=== PATIENT | male | born 1955 | race Caucasian/White ===

== ENCOUNTER 2016-07-20 07:22 | Day surgery (SDC) | payer OTHER ==
[~2016-07-20] VITALS: Ht 162.6 cm; Wt 60.7 kg
[~2016-07-20 07:22] MED LIST: AMLODIPINE BESYL5 MG PO; ASPIR-TRIN325 MG PO; ATORVASTATIN CA80 MG PO; LISINOPRIL5 MG PO; METOPROLOL TART25 MG PO; NOHOMEMEDS; PLAVIX75 MG PO; TAMSULOSIN HCL0.4 MG PO
[2016-07-20 16:05] VITALS: BP 132/78
[2016-07-20 19:52] VITALS: BP 145/84
[2016-07-20 23:25] VITALS: BP 132/89
[2016-07-21 04:31] VITALS: BP 133/85
[2016-07-21 05:56] LABS: BASOPHIL COUNT 0.1 K/uL (0-0.1); EOSINOPHIL (%) 2.6 % (0-5); EOSINOPHIL COUNT 0.3 K/uL (0-0.3); IMMATURE GRANULOCYTE (%) 1.7 % (0.0-0.7); IMMATURE GRANULOCYTE COUNT 0.2 K/uL; LYMPHOCYTE COUNT 3.8 K/uL (1.0-2.8); MCH 31.3 PG (29.0-34.0); MCHC 33.6 G/DL (30.0-36.0); MCV 93.3 FL (86-99); MEAN PLAT.VOLUME 10.1 uM^3 (9.0-12.4); MONOCYTE (%) 11.2 % (3-12); MONOCYTE COUNT 1.2 K/uL (0-0.8); NEUTROPHIL (%) 47.4 % (45-76); PLATELET COUNT 213 K/uL (156-360); RBC DIS.WIDTH-SD 47.6 % (39-53); WHITE BLOOD COUNT 10.5 K/uL (4.1-10.2)
[2016-07-21 06:49] LABS: ANION GAP 7 MEQ/L (2-14); CHLORIDE 107 MEQ/L (99-109); GFR ESTIMATE (CALCULATED) > 59 mL/min/; HDL CHOLESTEROL 45 MG/DL (Desirable>=40); LDL CHOLESTEROL 56 mg/dL (Desirable<100); NON-HDL CHOLESTEROL 66 mg/dL (Desirable<160); POTASSIUM 4.1 MEQ/L (3.7-5.4); SAMPLE HEMOLYSIS CHECK 0; SAMPLE ICTERIC CHECK 0; SAMPLE LIPEMIA CHECK 0; SODIUM 140 MEQ/L (136-147); TOTAL CHOLESTEROL 111 mg/dL (Desirable<200); TRIGLYCERIDES 48 MG/DL (Normal: <150); UREA NITROGEN (BUN) 12 mg/dL (9-23)
[2016-07-21 06:51] LABS: GLUCOSE 80 mg/dL (70-99)
[2016-07-21 07:59] VITALS: BP 154/73
[2016-07-21 08:11] LABS: Estimated Average Glucose 143 mg/dL (70-123); HEMOGLOBIN A1c (GLYCOHEMOGLOB) 6.6 % HGB (Below 5.7)
[2016-07-21] MEDS ORDERED: ATORVASTATIN CA40 MG PO (11:45)
[2016-07-21] MEDS ORDERED: LISINOPRIL10 MG PO (11:46)
[2016-07-21] MEDS ORDERED: NITROSTAT0.4 MG SL (11:46)
[2016-07-21] MEDS ORDERED: EFFIENT10 MG PO (11:47)
== END 2016-07-21 12:48 | disposition home or self-care (01) ==
LOC: CATH 07:22 → 2SOUTH 12:20 → 4EAST 12:20
PROVIDERS: Internal Medicine Interventional Cardiology
DX: I25.10 Atherosclerotic heart disease of native coronary artery without angina pectoris (principal); I34.0 Nonrheumatic mitral (valve) insufficiency; I25.5 Ischemic cardiomyopathy; I11.9 Hypertensive heart disease without heart failure; E78.5 Hyperlipidemia, unspecified; J44.9 Chronic obstructive pulmonary disease, unspecified; I25.2 Old myocardial infarction; Z87.891 Personal history of nicotine dependence; Z79.02 Long term (current) use of antithrombotics/antiplatelets; Z82.49 Family history of ischemic heart disease and other diseases of the circulatory system
CPT/HCPCS: 93458; C9600; 80048; 80061; 83036; 85025; 85347; 93005; C1725; C1769; C1874; C1887; G0378; J0153; J1644; J2250; J3010; J7030; J7050

== ENCOUNTER 2016-08-12 00:08 | Inpatient (IN) | payer OTHER ==
[~2016-08-12] VITALS: Ht 162.6 cm; Wt 62.0 kg
[~2016-08-12 00:08] MED LIST changes: +ATORVASTATIN CA40 MG PO; +EFFIENT10 MG PO; +LISINOPRIL10 MG PO; +NITROSTAT0.4 MG SL
[2016-08-12 01:33] LABS: EOSINOPHIL (%) 0.2 % (0-5); HEMATOCRIT 42.1 % (38.0-50.0); IMMATURE GRANULOCYTE (%) 1.2 % (0.0-0.7); IMMATURE GRANULOCYTE COUNT 0.1 K/uL; INSTRUMENT ABS NEUTROPHIL CT 4.4 K/uL; LYMPHOCYTE COUNT 3.7 K/uL (1.0-2.8); MCH 30.8 PG (29.0-34.0); MCHC 33.3 G/DL (30.0-36.0); MCV 92.5 FL (86-99); MONOCYTE (%) 13.8 % (3-12); MONOCYTE COUNT 1.3 K/uL (0-0.8); NEUTROPHIL (%) 45.8 % (45-76); NEUTROPHIL COUNT 4.4 K/uL (1.8-6.4); PLATELET COUNT 216 K/uL (156-360); RBC DIS.WIDTH-CV 14.3 % (11.8-14.6); RBC DIS.WIDTH-SD 48.5 % (39-53); RED BLOOD COUNT 4.55 M/uL (4.00-5.50); WHITE BLOOD COUNT 9.7 K/uL (4.1-10.2)
[2016-08-12 01:44] LABS: CHLORIDE 104 mEq/L (99-109); MAGNESIUM 1.7 mg/dL (1.3-2.7); POTASSIUM 4.4 mEq/L (3.7-5.4); SODIUM 141 mEq/L (136-147)
[2016-08-12 01:45] LABS: D-DIMER ELISA 0.78 mg/L FEU (< 0.57); GLUCOSE 115 mg/dL (70-99); INTER. NORMALIZED RATIO 1.1; PROTHROMBIN TIME 10.7 (9.2-11.2); PTT 26.2 (25-32)
[2016-08-12 01:47] LABS: ANION GAP 10 MEQ/L (2-14)
[2016-08-12 01:49] LABS: GFR ESTIMATE (CALCULATED) > 59 mL/min/
[2016-08-12 01:50] LABS: UREA NITROGEN (BUN) 22 mg/dL (9-23)
[2016-08-12 01:59] LABS: TROP-I INTERPRETATION NEGATIVE; TROPONIN-I 0.01 ng/mL (0.0-0.30)
[2016-08-12 04:55] LABS: TOTAL BILIRUBIN 0.7 mg/dL (0.0-1.0)
[2016-08-12 04:56] LABS: ALKALINE PHOSPHATASE 100 IU/L (3-129)
[2016-08-12 04:59] LABS: DIRECT BILIRUBIN 0.2 mg/dL (0.0-0.3)
[2016-08-12 05:23] VITALS: BP 132/60
[2016-08-12 07:56] VITALS: BP 126/73
[2016-08-12 09:40] LABS: TROP-I INTERPRETATION NEGATIVE; TROPONIN-I < 0.01 ng/mL (0.0-0.30)
[2016-08-12 11:37] VITALS: BP 143/78
[2016-08-12] MEDS ORDERED: PLAVIX75 MG PO (11:45)
[2016-08-12] MEDS ORDERED: ADVAIR 500/501 DISK IH (11:46)
[2016-08-12] MEDS ORDERED: PROAIR RESPICL90 MCG IH (11:47)
[2016-08-12] MEDS ORDERED: ASPIR-TRIN325 M1 PO (14:55)
[2016-08-12] MEDS ORDERED: COZAAR25 MG PO (14:56)
[2016-08-12 15:51] VITALS: BP 122/70
[2016-08-12 16:01] LABS: TROP-I INTERPRETATION NEGATIVE; TROPONIN-I 0.02 ng/mL (0.0-0.30)
[2016-08-12 19:42] VITALS: BP 125/68
[2016-08-12 23:36] VITALS: BP 123/71
[2016-08-13 04:02] VITALS: BP 121/68
[2016-08-13 06:18] LABS: HEMATOCRIT 39.5 % (38.0-50.0); MCH 31.6 PG (29.0-34.0); MCHC 33.7 G/DL (30.0-36.0); MCV 93.8 FL (86-99); MEAN PLAT.VOLUME 10.4 uM^3 (9.0-12.4); PLATELET COUNT 218 K/uL (156-360); RBC DIS.WIDTH-CV 14.9 % (11.8-14.6); RBC DIS.WIDTH-SD 50.6 % (39-53); RED BLOOD COUNT 4.21 M/uL (4.00-5.50); WHITE BLOOD COUNT 15.2 K/uL (4.1-10.2)
[2016-08-13 06:43] LABS: ANION GAP 8 MEQ/L (2-14); CHLORIDE 105 MEQ/L (99-109); GFR ESTIMATE (CALCULATED) > 59 mL/min/; SAMPLE HEMOLYSIS CHECK 0; SAMPLE ICTERIC CHECK 0; SAMPLE LIPEMIA CHECK 0; SODIUM 141 MEQ/L (136-147); UREA NITROGEN (BUN) 22 mg/dL (9-23)
[2016-08-13 06:47] LABS: GLUCOSE 198 mg/dL (70-99)
[2016-08-13 07:47] VITALS: BP 130/73
[2016-08-13 11:53] VITALS: BP 143/78
[2016-08-13 16:16] VITALS: BP 127/68
[2016-08-13 20:26] VITALS: BP 116/67
[2016-08-13 23:52] VITALS: BP 129/72
[2016-08-14 03:49] VITALS: BP 132/70
[2016-08-14 06:24] LABS: EOSINOPHIL (%) 0 % (0-5); HEMATOCRIT 39.4 % (38.0-50.0); IMMATURE GRANULOCYTE (%) 0.8 % (0.0-0.7); IMMATURE GRANULOCYTE COUNT 0.1 K/uL; INSTRUMENT ABS NEUTROPHIL CT 13.9 K/uL; LYMPHOCYTE COUNT 2.1 K/uL (1.0-2.8); MCH 30.7 PG (29.0-34.0); MCHC 32.7 G/DL (30.0-36.0); MCV 93.8 FL (86-99); MEAN PLAT.VOLUME 10.6 uM^3 (9.0-12.4); MONOCYTE (%) 5.5 % (3-12); MONOCYTE COUNT 0.9 K/uL (0-0.8); NEUTROPHIL (%) 81.2 % (45-76); NEUTROPHIL COUNT 13.9 K/uL (1.8-6.4); PLATELET COUNT 236 K/uL (156-360); RBC DIS.WIDTH-CV 15.1 % (11.8-14.6); RBC DIS.WIDTH-SD 52.6 % (39-53); WHITE BLOOD COUNT 17.1 K/uL (4.1-10.2)
[2016-08-14 06:51] LABS: ANION GAP 6 MEQ/L (2-14); CHLORIDE 107 MEQ/L (99-109); GFR ESTIMATE (CALCULATED) > 59 mL/min/; GLUCOSE 159 mg/dL (70-99); POTASSIUM 4.9 MEQ/L (3.7-5.4); SAMPLE HEMOLYSIS CHECK 0; SAMPLE ICTERIC CHECK 0; SAMPLE LIPEMIA CHECK 0; SODIUM 142 MEQ/L (136-147); UREA NITROGEN (BUN) 27 mg/dL (9-23)
[2016-08-14 07:59] VITALS: BP 139/79
[2016-08-14 08:30] VITALS: BP 139/79
[2016-08-14 11:30] VITALS: BP 155/74
[2016-08-14] MEDS ORDERED: CEFTIN500 MG PO (13:33)
[2016-08-14] MEDS ORDERED: PREDNISONE20 MG PO (13:34)
[2016-08-14] MEDS ORDERED: SPIRIVA RESPIMAT4 GM IH (13:34)
[2016-08-14] MEDS ORDERED: PROAIR RESPICL90 MCG IH (13:35)
== END 2016-08-14 15:12 | disposition home or self-care (01) | DRG 190 ==
LOC: EME 00:08 → EDOF 04:02 → 5SOUTH 04:02
PROVIDERS: Emergency Medicine; Hospitalist; Internal Medicine
DX: J44.0 Chronic obstructive pulmonary disease with (acute) lower respiratory infection (principal); J20.9 Acute bronchitis, unspecified; J44.1 Chronic obstructive pulmonary disease with (acute) exacerbation; J96.01 Acute respiratory failure with hypoxia; I11.9 Hypertensive heart disease without heart failure; I25.5 Ischemic cardiomyopathy; I27.2 Other secondary pulmonary hypertension; E11.9 Type 2 diabetes mellitus without complications; E78.5 Hyperlipidemia, unspecified; I25.10 Atherosclerotic heart disease of native coronary artery without angina pectoris; I73.9 Peripheral vascular disease, unspecified; K55.1 Chronic vascular disorders of intestine; Z95.828 Presence of other vascular implants and grafts; I25.2 Old myocardial infarction; Z87.891 Personal history of nicotine dependence; Z95.5 Presence of coronary angioplasty implant and graft; Z79.82 Long term (current) use of aspirin
CPT/HCPCS: 71020; 71275; 80048; 80076; 83605; 83735; 83880; 84484; 85025; 85027; 85379; 85610; 85730; 87040; 87070; 87107; 87205; 93005; 94640; 94640 76; 94760; 94799; 99202; 99281; 99285; J0696; J1644; J2920; J2930; J7050